=== PATIENT | female | born 1950 | race Caucasian/White ===

== ENCOUNTER → 2023-12-12 | Outpatient (REF) | payer OTHER, SELFPAY | LOC: DHSLP | PROVIDERS: ATTENDING PHYSICIAN Internal Medicine Critical Care Medicine; FAMILY PHYSICIAN Internal Medicine | DX: G47.33 Obstructive sleep apnea (adult) (pediatric) (principal) | CPT/HCPCS: 95811 ==

== ENCOUNTER → 2024-06-12 14:04 | Outpatient (REF) | payer OTHER, SELFPAY | LOC: HWRAD 14:04 | PROVIDERS: ATTENDING PHYSICIAN Internal Medicine | DX: M81.0 Age-related osteoporosis without current pathological fracture (principal); Z12.31 Encounter for screening mammogram for malignant neoplasm of breast | CPT/HCPCS: 77063; 77067; 77080 ==

== ENCOUNTER → 2024-11-13 10:26 | Outpatient (REF) | payer OTHER, SELFPAY | LOC: HWRAD 10:26 | PROVIDERS: ATTENDING PHYSICIAN Internal Medicine | DX: R10.31 Right lower quadrant pain (principal); E04.1 Nontoxic single thyroid nodule | CPT/HCPCS: 76536; 76830; 76856 ==

== ENCOUNTER → 2024-12-10 15:46 | Outpatient (REF) | payer OTHER, SELFPAY | LOC: RAD 15:46 | PROVIDERS: ATTENDING PHYSICIAN Hospitalist; FAMILY PHYSICIAN Internal Medicine | DX: R10.31 Right lower quadrant pain (principal) | CPT/HCPCS: 74177; Q9967 ==

== ENCOUNTER → 2025-01-18 11:47 | Outpatient (REF) | payer OTHER, SELFPAY | LOC: RAD 11:47 | PROVIDERS: ATTENDING PHYSICIAN Internal Medicine Gastroenterology; FAMILY PHYSICIAN Internal Medicine | DX: R19.4 Change in bowel habit (principal) | CPT/HCPCS: 74018 ==

== ENCOUNTER 2025-02-15 08:24 | Inpatient (IN) | payer OTHER, SELFPAY ==
[2025-02-13 14:40] VITALS: BP 122/103
[2025-02-13 14:41] VITALS: BP 104/72
[2025-02-13 14:43] LABS: Glucose - Point of Care 108 mg/dl (70-99)
[2025-02-13 15:13] LABS: % Basophils 0.7 % (0-2); % Eosinophils 0.8 % (0-6); % Immature Granulocytes 0.3 % (0-0.5); % Lymphocytes 26.2 % (20.5-51.1); % Monocytes 8.9 % (1.7-9.3); % Neutrophils 63.1 % (42.2-75.2); Absolute Basophils 0.1 10^3/uL (0-0.2); Absolute Eosinophils 0.1 10^3/uL (0-0.7); Absolute Monocytes 0.7 10^3/uL (0.1-0.6); Absolute Neutrophils 4.7 10^3/uL (1.4-6.5); Hematocrit 37.9 % (37.0-47.0); Hemoglobin 12.7 g/dL (12.0-16.0); Mean Corp Hgb Conc. 33.5 g/dL (33.0-37.0); Mean Corpuscular Hgb 29.5 pg (27.0-31.0); Mean Corpuscular Volume 88.1 fL (81.0-99.0); Mean Platelet Volume 10.4 fL (7.4-10.4); Nucleated Red Blood Cells % 0 %; Platelet Count 221 10^3/uL (130-400); Red Cell Dist. Width 13.3 % (11.5-14.5); White Blood Cell Count 7.4 10^3/uL (4.8-10.8)
[2025-02-13 15:21] LABS: Urine Albumin 4+ (Neg - Trace); Urine Bilirubin Negative (Negative); Urine Character Cloudy (Clear); Urine Color Yellow; Urine Glucose Negative (Negative); Urine Ketone Negative (Negative); Urine Leukocyte 2+ (Negative); Urine Nitrite Negative (Negative); Urine Occult Blood 2+ (Negative); Urine Specific Gravity 1.025 (<1.030); Urine Urobilinogen Negative (Neg - 1+)
[2025-02-13 15:29] LABS: ALT (SGPT) 20 U/L (0-35); AST (SGOT) 21 U/L (14-36); Alkaline Phosphatase 87 U/L (38-126); Blood Urea Nitrogen 26 mg/dl (7-17); Calcium 9.9 mg/dl (8.4-10.2); Carbon Dioxide 19 mmol/L (22-30); Chloride 109 mmol/L (98-107); Glucose 116 mg/dl (70-99); Potassium 4.8 mmol/L (3.5-5.1); Sodium 139 mmol/L (135-145); Total Bilirubin 0.7 mg/dl (0.2-1.3); Total Protein 6.7 g/dl (6.3-8.2); eGFR 53.39
[2025-02-13 15:31] LABS: Urine Bacteria Many (Negative); Urine Squamous Cell >30 /LPF (Few); Urine White Cell 30-40 /HPF (0-5)
[2025-02-13 15:33] LABS: COVID-19 Antigen Negative (Negative)
--- NOTE | 2025-02-13 16:45 | ED.GENMED ---
History of Present Illness
General
Chief Complaint: Blood Sugar Problem
Source: patient
Exam Limitations: none
Time Seen by Provider: 02/13/25 16:34
Nursing documentation reviewed up to this point in time: agreed with
History of Present Illness
History of Present Illness:
74 yo female w h/o TIA, Migraines, HTN, HLD, GERD, Gastric bypass, NIDDM, chronic UTI, Hypothyroid, presents for dysuria, vaginal pain and consistently low blood sugars in 50'-60's past 3 days.
Has been fatigued past week, poor appetite.
Followed by [facility], referred to Vulvovaginal GAS ENGINE REPAIRER at [place] for vaginal pain. Chronic UTI's, place on Methenamine Kaila one month ago, finished 7 days Nitrofurantoin yesterday with no relief of symptoms.
Started Estradiol and Clobetasol cream to vaginal area 2 weeks ago but it burned too much so stopped.
Denies fever/chills. Was nauseous yesterday with dry heaves, no vomiting.
Past History
Past History
ED Past Medical History: GERD, HTN, Hypercholesterolemia, NIDDM, Hypothyroidism, Psychiatric (depression) and Other (TIA, )
ED Past Surgical History: Cholecystectomy, Orthopedic and Other (Gastric bypass)
Social History
Tobacco: Non-smoker
Alcohol: Occasional
Personal: Single
Living: with family
Employment: Employed (but off for the summer )
Family History
Family History: Other (Reviewed and non-contributory)
Review of Systems
Review of Systems
Allergies reviewed?: Yes
All Other Systems: ROS reviewed and negative except as documented in HPI and ROS
Constitutional: Denies fever or chills
Respiratory: Denies trouble breathing
Cardiac: Denies chest pain
ABD/GI: Reports nausea; Denies abdominal pain, vomiting, diarrhea or constipated
: Reports dysuria, incontinence and other (vaginal pain, chronic); Denies difficulty voiding, bleeding or discharge
Phy Exam
Physical Exam
Physical Exam:
GENERAL: No acute distress. A&Ox3.
CONSTITUTIONAL: Afebrile.
EYES: clear, conjunctivae normal
ENMT: moist mucus membranes, Pharynx nl
RESPIRATORY: Regular respirations, nonlabored, lungs clear.
CARDIOVASCULAR: Regular rate and rhythm, no murmurs, no rubs.
GI: Soft, nontender, normal BS
: external exam only: mild erythema of introitus and urethral opening, no discharge, vaginal atrophy noted.
MUSCULOSKELETAL: Moves with ease. Well perfused.
SKIN: Warm, dry, pink
PSYCH: Normal mood and affect. Well kept, interactive and appropriate
NEUROLOGIC: Awake, alert and oriented. No focal neurological deficits
Course
Orders/Labs/Results
Orders:
Orders
02/13/25 14:59
COVID-19 Antigen Urgent
Source: Nasal Swab
Urinalysis Reflex To Culture Urgent
Date Specimen was Collected: 02/13/25
Time Specimen was Collected: 14:47
Urine Microscopic Reflex Cult Urgent
Urine Culture Urgent
YADY Source: U
Specimen Description:
Date Specimen was Collected: 02/13/25
Time Specimen was Collected: 14:47
02/13/25 15:00
Complete Blood Count/With Diff Urgent
Comprehensive Metabolic Panel Urgent
Influenza A+B Rapid Molecular Urgent
YADY Source: Nasal Swab
Specimen Description:
02/13/25 18:16
Piperacillin/Tazo 3.375 Gram [Zosyn] 3.375 gram in 50 ml IV NOW
02/13/25 19:44
Admit/Transfer Patient As Directed
Co-Sign Provider:
Level of Care: Observation services
Assign to:: Medical/Surgical
Physician / Group: José Luis
Diagnosis: UTI
Reason for Hospitalization: UTI
02/13/25 19:45
PRN Pain Medication Management As Directed
May give lesser potent ordered pain med per pt: Yes
preference::
Protocol:: Medication orders for pain may be administered in a
manner that supports deferring to patient preference
when the pt is:
- Requesting an ordered lesser potent pain medication.
Least to most potent pain medications are defined
as: acetaminophen < NSAID < tramadol < opioids
(morphine, oxycodone, hydromorphone).
- Requesting a lesser dose of the same medication IF
ORDERED.
- Requesting a less intrusive route of administration
if both routes are prescribed by the provider (PO <
IV).
02/13/25 19:46
Code Status As Directed
Resuscitation Status: Full Code
Abnormal Lab Results
02/13/25 02/13/25 02/13/25
14:40 14:59 15:00
Absolute Monos (auto) 0.7 H 10^3/uL
(0.1-0.6)
Chloride 109 H mmol/L
(98-107)
Carbon Dioxide 19 L mmol/L
(22-30)
BUN 26 H mg/dl
(7-17)
Creatinine 1.1 H mg/dL
(0.6-1.0)
Glucose 116 H mg/dl
(70-99)
Ur Occult Blood Reflex 2+ A
(Negative)
Leukocyte Esterase Rfl 2+ A
(Negative)
Urine RBC 3-6 A /HPF
(0-2)
Urine WBC (Reflex) 30-40 A /HPF
(0-5)
Urine Bacteria (Reflex) Many A
(Negative)
Urine Albumin (Reflex) 4+ A
(Neg - Trace)
POC Glucose 108 H mg/dl
(70-99)
02/13/25
19:51
Absolute Monos (auto)
Chloride
Carbon Dioxide
BUN
Creatinine
Glucose
Ur Occult Blood Reflex
Leukocyte Esterase Rfl
Urine RBC
Urine WBC (Reflex)
Urine Bacteria (Reflex)
Urine Albumin (Reflex)
POC Glucose 66 L mg/dl
(70-99)
02/13/25 15:00
02/13/25 15:00
Vital Signs
Initial and Last Documented VS:
Initial Vital Signs
Temp Pulse BP Pulse Ox
98 F 94 122/103 97
02/13/25 14:40 02/13/25 14:40 02/13/25 14:40 02/13/25 14:40
Last Documented Vital Signs
Temp Pulse Resp BP Pulse Ox
97.9 F 91 16 135/74 95
02/13/25 18:21 02/13/25 18:21 02/13/25 20:00 02/13/25 18:21 02/13/25 18:21
MDM/Problems Addressed
Differential Diagnosis Includes:
UTI, Vaginitis, hypoglycemia
MDM/Problems Addressed:
74 yo female w h/o TIA, Migraines, HTN, HLD, GERD, Gastric bypass, NIDDM, chronic UTI, Hypothyroid, presents for dysuria, vaginal pain and consistently low blood sugars in 50'-60's past 3 days.
Has been fatigued past week, poor appetite.
Followed by [facility], referred to Vulvovaginal GAS ENGINE REPAIRER at [place] for vaginal pain. Chronic UTI's, place on Methenamine Kaila one month ago, finished 7 days Nitrofurantoin yesterday with no relief of symptoms.
Started Estradiol and Clobetasol cream to vaginal area 2 weeks ago but it burned too much so stopped.
Denies fever/chills. Was nauseous yesterday with dry heaves, no vomiting.
CBC normal
CMP: BUN/Creat 26/1.1, otherwise unremarkable. IVFs ordered for mild dehydration
U/A: with 30-40 WBC's, many bacteria,2+ blood, 4+albumin, pt with chronic UTIs and dysuria, similar to her previous U/As
7:00 p.m.
elderly female being admitted for UTI, hypoglycemia, vaginal pain
Organism has been sensitive to Zosyn in the past so will start that pending culture results.
Hospitalist notified of admission
*Critical Care Note
Total Time (30-74mins, 75-104mins- exclusive of procedures): Not Applicable
ED Attending Note
-
Portions of this chart may have been created with voice recognition software.� Occasional wrong word or��sound alike� substitutions may have occurred due to the inherent limitations of voice recognition software.
Discharge Plan
Departure
Patient Disposition: Admit
Date of Disposition: 02/13/25
Time of Disposition: 18:19
Admit to: Med/Surg
Presentation/result/management discussed w/ accepting MD/DO: Hospitalist
Condition: Fair
Discharge Problem:
UTI (urinary tract infection) due to Enterococcus, Hypoglycemia associated with type 2 diabetes mellitus
Interventions
Interventions:
*Risk Screen - Suicide Last Done: 02/13/25 14:41
*General Assessment Last Done: 02/13/25 14:41
*Neglect/Abuse Screening Last Done: 02/13/25 14:41
*ED- Fall Risk Assessment Last Done: 02/13/25 18:54
*ED COVID-19 Vaccine History Last Done: 02/13/25 18:54
ED- Neurological Assessment Last Done: 02/13/25 18:21
[2025-02-13 18:21] VITALS: BP 135/74
[2025-02-13] MEDS: ZOSYN 50 IV (18:50)
[2025-02-13 18:55] VITALS: BMI 33.5
--- NOTE | 2025-02-13 19:11 | HPS.HSE ---
Family Physician
-
Family Physician: Arelis Crews
Chief Complaint
-
Low blood sugar readings and urinary symptoms.
History of Present Illness
Is a 74-year-old female with past medical history significant for exp-bckcyrg-wfcscohke diabetes, hypertension, hyperlipidemia, GERD, recurrent UTIs who presents to the emergency department with complaints of blood sugar reading low on a continuous
monitor as well as urinary symptoms.
Patient reports that for the last 2 weeks she has had blood sugars that she has been in the low 70s and as low as 50s as measured by her Dexcom monitor. She reported that she had seen spikes to just below 200 but is not clear whether this was
postprandial. She is not having symptoms that can be associated with hypoglycemia however. She has no new changes on the medications as she continues to be on metformin and Ozempic. She states she has been taking Ozempic for at least 2 months.
She does not take any other glucose lowering agents. Patient denies any significant weight loss. She denies any diarrhea. She denies any changes in bowel habits. She denies any significant changes in food intake. She does report decreased
appetite. Family reports that patient has been more sleepy over the last few days with increased urinary symptoms.
Patient has history of recurrent urinary tract infections and vaginitis and has been followed by urology as well vulvovaginal expert. She was recently started on ointment as well as maintenance methenamine as needed nitrofurantoin. She just
finished for 5-day course of nitrofurantoin without any improvement in her dysuria. She reports of burning sensation anytime she pees. It is not clear when that is mostly from the vaginitis or from a new urinary tract infection. She had a
positive UA at the clinic about 1 week ago and due to the dysuria was started on the nitrofurantoin few days later.
She has not had any fevers or chills. She is scheduled for colonoscopy for right-sided abdominal discomfort but this was canceled 2 days ago and has been rescheduled for April.
And emergency department she was afebrile, blood pressure 135/74 with a pulse of 91 and she was satting 95% on room air. CBC was unremarkable. Electrolytes were mostly unremarkable with a bicarb of 19 BUN of 26 and a creatinine of 1.1. Glucose
was 116.
UA showed positive leukocyte Estrace, negative nitrites, bacteria WBCs and loss of squamous cells.
Medical History
Past Medical History
Past Medical History: Reports GERD, HTN, Hypercholesterolemia, Hypothyroidism and NIDDM
Additional Past Medical History:
Recurrent urinary tract infections has been seen urologic oncologist
Past Surgical History: Reports Orthopedic
Social History
Unable to obtain full social history at this time due to: Dementia
Tobacco: Non-smoker
Alcohol: None
Drug: None
Personal: Single
Living: With Family
Employment: Employed
Family History
Family History: Not pertinent
Allergies / Home Medications
Allergies reflects when Allergies were last updated in [employer].
Home Medications with original date entered in [employer]
Allergy/Medication List:
Allergies
Allergy/AdvReac Type Severity Reaction Status Date / Time
sulfamethoxazole Allergy 'throat Verified 06/28/23 14:25
closes,
rash'
Home Medications
aspirin 81 mg tablet,delayed release 81 mg PO DAILY Blood clot prevention/tx 05/08/22
atorvastatin 20 mg tablet 20 mg PO QPM High cholesterol 05/08/22
cholecalciferol (vitamin D3) 25 mcg (1,000 unit) tablet (Vitamin D3) 25 mcg PO DAILY Supplement 05/08/22
levothyroxine 100 mcg tablet 100 mcg PO DAILY Thyroid 05/08/22
metoprolol succinate 50 mg tablet,extended release 24 hr 50 mg PO DAILY Heart disease/condition 05/08/22
omeprazole 40 mg capsule,delayed release 40 mg PO DAILYPRN PRN gerd 05/08/22
gabapentin 300 mg capsule 300 mg PO HS Neurological Condition 06/27/22
furosemide 20 mg tablet (Lasix) 20 mg PO DAILY 06/28/23
vibegron 75 mg tablet (Gemtesa) 75 mg PO DAILY 06/28/23
ferrous sulfate 325 mg (65 mg iron) tablet 325 mg PO Q48H 30 days #15 tabs 07/02/23
insulin lispro 100 unit/mL subcutaneous half-unit pen (Humalog Kiran KwikPen (U-100)) See Rx Instructions .Route .COMPLEX PRN blood sugar 02/13/25
metformin 1,000 mg tablet 1,000 mg PO BID 02/13/25
therapeutic multivitamin 1 tab PO DAILY 02/13/25
Review of Systems
-
History Source: Patient
Constitutional: Reports Sleep Disturbance
EENT: Reports No Symptoms
Respiratory: Reports No Symptoms
Cardiac: Reports No Symptoms
Abdomen/GI: Reports Abdominal Pain
: Reports Dysuria
Musculoskeletal: Reports No Symptoms
Skin: Reports No Symptoms
Neurological: Reports No Symptoms
Endocrine: Reports Other (hypoglycemia)
Hematologic/Lymphatic: Reports No Symptoms
Psych: Reports No Symptoms
Physical Exam
Vital Signs
Vital Signs
Temp Pulse Resp BP Pulse Ox
97.9 F 91 18 135/74 95
02/13/25 18:21 02/13/25 18:21 02/13/25 18:21 02/13/25 18:21 02/13/25 18:21
Physical Exam
General: Well Developed, Well Nourished and Comfortable
HEENT: NormoCephalic, Anicteric, Moist mucous membranes and Atraumatic
Respiratory: Clear
Cardiac: S1/S2 and Regular Rhythm
Breast: Deferred by me
GI: Soft, Non Tender, Non Distended and Normal Bowel Sounds
Rectal: Deferred by Provider
Genito-urinary: Deferred by me
Musculoskeletal: No Clubbing, No Cyanosis and No Edema
Skin: Warm
Neuro: AO x 3 and Nonfocal/grossly intact
Hematologic/Lymphatic: No Lymphadenopathy
Psych: Calm
Laboratory Results
-
02/13/25 15:00
02/13/25 15:00
Laboratory Results
Total Bilirubin 0.7 mg/dl (0.2-1.3) 02/13/25 15:00
AST 21 U/L (14-36) 02/13/25 15:00
ALT 20 U/L (0-35) 02/13/25 15:00
Alkaline Phosphatase 87 U/L (38-126) 02/13/25 15:00
Data Reviewed
-
Lab Data: Labs Reviewed by me
Old Records: Reviewed
Impression/Plan
-
IMPRESSION:
74-year-old with diabetes, hypertension, hyperlipidemia, recurrent urinary tract infections coming in with urinary symptoms (dysuria) as well as low glucose readings on her continous monitor. U/A is positive and she has been more sleepy.
PLAN:
UTI - Recurrent UTI with h/o resistant Ecoli and Enterobacter. Appears symptomatic with dysuria but confounded by severe vaginitis. Contaminated u/a sample.
- admit to med/surg
- urine cultures sent
- will continue zosyn for now
- given resistance profile, will get ID consultation as patient may be colonized
- pyridium prn
DM II - last A1c 6.4 in December. Reads as low as 56 on dexcom but no symptoms. Blood glucose 116 on blood test and 102 on fingerstick here today. No dietary changes, no med changes. On ozempic x 2 months and metformin which do not lead to
hypoglycemia. Adrenal insufficiency vs medication related and less likely exogenous or hyperinsulin secretion
- correlate readings here with her dexcom -> check dexcom and fingersticks achs and correlate findings, also check dexcom and blood draws to correlate
- hold metformin for now
- low dose sliding scale
- continue levothyroxine
- check tsh and am cortisol
- if readings correlate and patient has hypoglycemic episodes with unawareness consider supervised fasting for exogenous and endogenous insulin secretion
HTN
- continue metoprolol
- continue lasix
DVT PPX - lovenox sq
Code Status - Full code
[2025-02-13 19:52] LABS: Glucose - Point of Care 66 mg/dl (70-99)
[2025-02-13 20:22] LABS: Glucose - Point of Care 84 mg/dl (70-99)
[2025-02-13 21:11] VITALS: BP 144/78; BMI 33.4
[2025-02-13 21:40] LABS: Glucose - Point of Care 76 mg/dl (70-99)
--- NOTE | 2025-02-13 22:05 | PTCARENOTE ---
Pt received from ED via stretcher. Ambulated to bed w/rolling walker and assist x1. Oriented to surroundings and plan of care discussed. Admission and assessment completed. Pt denies pain. Skin intact. Instructed to ring for assist when
getting OOB, verbalizes understanding. Pt's own soft brace to R ankle, removed per pt request. Offers no complaints at present. Call rupinder w/in reach.
[2025-02-13] MEDS: NEURONTIN 300 MG PO (22:20)
[2025-02-13] MEDS: GLUCOPHAGE 1000 MG PO (22:20)
[2025-02-13 23:35] VITALS: BP 169/89
[2025-02-14] MEDS: ZOSYN 50 IV ×5 (00:16→23:32)
--- NOTE | 2025-02-14 03:10 | GLUCOSE ---
Addendum entered by Jenn Stock RN 02/14/25 05:10:
Pt's device continues to register in the 50s. Provider notified. Instructed to repeat accucheck now. Fingerstick = 69. Electronic orders for IVF received.
Addendum entered by Jenn Stock RN 02/14/25 03:50:
Repeat fingerstick at 0326 = 85. Provider notified and values from pt's freestyle device communicated. Instructed to draw am labs. At the time am labs were drawn, pts device indicated glucose was 62
Original Note:
SITUATION:
0300 blood sugar 69 via accudata, pt's own freestyle device reading 54
BACKGROUND:
pt has been hypoglycemic prior to admission. per protocol 0300 blood sugar warranted. orders to check pt's own monitor when accuchecks are completed to correlate values.
ASSESSMENT:
pt drowsy but arousable to verbal stimuli, conversant, reports feeling asymptomatic
RECOMMENDATION: 4 oz orange provided per protocol, recheck fingerstick per protocol
[2025-02-14 03:15] LABS: Glucose - Point of Care 69 mg/dl (70-99)
[2025-02-14 03:37] LABS: Glucose - Point of Care 85 mg/dl (70-99)
[2025-02-14 04:35] LABS: Blood Urea Nitrogen 31 mg/dl (7-17); Calcium 9.8 mg/dl (8.4-10.2); Carbon Dioxide 15 mmol/L (22-30); Chloride 111 mmol/L (98-107); Estimated Creatinine Clearance 31 ml/min; Glucose 80 mg/dl (70-99); Magnesium 1.5 mg/dl (1.6-2.3); Sodium 139 mmol/L (135-145)
[2025-02-14 05:03] LABS: Glucose - Point of Care 68 mg/dl (70-99)
[2025-02-14] MEDS: MAGNESIUM SULFATE 100 IV (05:04)
[2025-02-14] MEDS: D5/0.45%NACL 1000 IV (05:04)
[2025-02-14 05:05] LABS: Alcohol None Detected
[2025-02-14 05:18] LABS: TSH 0.25 uIU/ml (0.47-4.68)
[2025-02-14 05:31] LABS: Cortisol, Random 9.2 ug/dl
[2025-02-14] MEDS: SYNTHROID 100 MCG PO (06:08)
[2025-02-14 07:04] LABS: Glucose - Point of Care 72 mg/dl (70-99)
--- NOTE | 2025-02-14 07:45 | PTCARENOTE ---
06:52 Accucheck resulting 72. Personal Dexcom reading 54.
[2025-02-14 07:47] VITALS: BP 113/61
[2025-02-14 09:02] LABS: Glucose - Point of Care 78 mg/dl (70-99)
[2025-02-14] MEDS: FEOSOL 325 MG PO (09:09)
[2025-02-14] MEDS: ASPIR LOW (ENTERIC COATED) 81 MG PO (09:09)
[2025-02-14] MEDS: LASIX 20 MG PO (09:09)
[2025-02-14] MEDS: TOPROL XL 50 MG PO (09:10)
--- NOTE | 2025-02-14 10:22 | CM ---
Met with patient admitted from home. she lives alone in 3rd floor apt with elevator access. She has rolling walker, rollator, CPAP, bar that is in U shape near shower and toilet . she has shower seat also.She has been to [facility] in past.
PCP DR. Crews
Rx : [facility]
PLAN: home no needs.
--- NOTE | 2025-02-14 12:03 | W.PN.HOSP.TC ---
Today's Communication/Plan
-
Hold Lasix and metformin
Change IV fluids to fluids with bicarb
Repeat labs in the morning
Continue antibiotics
Await infectious disease consultation
Discontinue Gemtesa
Assessment / Plan
Assessment / Plan
This is a pleasant 74-year-old female with history of diabetes presented with complaints of low sugar. For the past 2 weeks she has had blood sugars in the 50s to 70s on her Dexcom. She uses Humalog as needed and has not really required it. No
other symptoms other than feeling tired currently she is on Humalog as needed, which she has not required, metformin and Ozempic. Patient has a history of recurrent UTIs and has been followed by urology as well as a vulvovaginal specialist. She is
on methenamine and as needed nitrofurantoin. No fever or chills.
On examination patient is awake and alert
Cardiovascular system S1-S2 appreciated, short systolic murmur at apex
Chest clear to auscultation
Abdomen I could not elicit any tenderness
No pedal edema
# Hypoglycemia
Of diabetes
Patient reports last hemoglobin A1c was 6.4 in December
Normal cortisol level
TSH low. I would repeated with reflex to T4 in the morning
Hold off on further metformin
Watch sugars
Currently on IV fluids with dextrose-stop it when blood sugars are stable
# Recurrent UTIs
History of colonization with multidrug-resistant organism-Enterobacter, Citrobacter, E. coli
History of chronic interstitial cystitis
Agree with infectious disease consultation
Wait for cultures
Currently on Zosyn
I would hold off on Gemtesa given recurrent UTIS.
Pyridium as needed for symptoms
May benefit from estrogen vaginal creams
# Acute kidney injury-with metabolic acidosis -hold metformin and Lasix
Check bladder scan.
Fluids with bicarb
# Hypomagnesemia-replaced. Recheck in am.
# Hypothyroidism-continue levothyroxine 100 mcg daily
# Hypertension-continue metoprolol
# Hyperlipidemia-continue statin
# History of TIA-continue aspirin and statin
# Obesity with history of gastric sleeve surgery in the past in 2018- Currently on Ozempic.
# Sleep apnea-continue CPAP
# Overactive bladder-on Gemtesa as outpatient
# GERD-PPI
# Migraines
# DVT prophylaxis-Lovenox
# Full code
D/W Nephew
D/W RN
reviewed ols charts
Time spent today- over 50 min
Anticipated Discharge: > 48 hours
Subjective/Interval History
-
Date of Service: February 14, 2025
Objective Data
-
Labs:
Laboratory Results
02/14/25
03:45
Sodium 139
Potassium 5.0
Chloride 111 H
Carbon Dioxide 15 L
BUN 31 H
Creatinine 1.5 H
Glucose 80
Calcium 9.8
Vital Signs:
Vital Signs
Temp Pulse Resp BP Pulse Ox
97.9 F 76 20 113/61 94
02/14/25 07:47 02/14/25 07:47 02/14/25 07:47 02/14/25 07:47 02/14/25 07:47
[2025-02-14 12:47] LABS: Glucose - Point of Care 127 mg/dl (70-99)
--- NOTE | 2025-02-14 13:45 | CON.ID ---
Consultation
-
Date/Time Consultation Requested: 02/14/25 5:45
Date/Time Consultation Performed: 02/14/25 13:46
Requesting Provider: Dr Ordonez
Performing Provider: Dr Phillip
Reason for Consultation: hx of esbl uti, ?colonization, on zosyn
Chief Complaint / Past History
Chief Complaint
dysuria
History of Present Illness
Ms Ghosh is a 74 year old female with history of lichen sclerosis x5 years, recurrent UTIs and colonization with ESBL E coli who presented here yesterday for hypoglycemia on ozempic. She was recently started on estrace, clobetasol, methanamine
and an empiric 5 day course of nitrofurantoin without improvement in dysuria. No fevers or chills. She reports that with starting the creams she actually had worsening of her chronic vaginitis.
In the ER she was afebrile, bp stable, wbc 7.4, hg b12.7, plt 221, no L shift, Na 139, cr baseline 0.8 on arrival 1.1 and now 1.5, lfts are wnl, UA with 30-40 wbc/hpf and many bacteria, urine culture pending. She is currently on zosyn.
Past History
Additional Past Medical History:
GERD, HTN, Hypercholesterolemia, Hypothyroidism and NIDDM
Additional Past Surgical History:
none
Allergy History:
sulfamethoxazole Allergy (Verified 06/28/23 14:25)
'throat closes, rash'
Medications Reviewed: Yes
Social History
Tobacco: Non-Smoker
Alcohol: None
Drug: None
Family History
Family History: Not Pertinent
Review of Systems
Review of Systems
General: Negative Fever or Chills
All systems: All other systems were reviewed and were negative
Vital Signs
Temp Pulse Resp BP Pulse Ox
97.9 F 76 20 113/61 94
02/14/25 07:47 02/14/25 07:47 02/14/25 07:47 02/14/25 07:47 02/14/25 07:47
Physical Exam
Physical Exam
Constitutional: No Acute Distress and Chronically Ill
Cardiovascular: Regular Rate and S1/S2; Negative Murmur or Rub
Pulmonary: Clear and Symmetric; Negative Wheezes, Rales or Rhonchi
Gastrointestinal: Soft, Non Tender, Non Distended and Normal Bowel Sounds
Genito-Urinary: Other (vaginal tissue is pale, white, atrophic appearing,)
Skin: Warm and Dry; Negative Rash or Jaundice
Lab / Diagnostic Study Results
02/13/25 15:00
02/14/25 03:45
Abs Immat Gran (auto) 0.0 10^3/uL (0-0.05) 02/13/25 15:00
Absolute Neuts (auto) 4.7 10^3/uL (1.4-6.5) 02/13/25 15:00
Absolute Lymphs (auto) 2.0 10^3/uL (1.2-3.4) 02/13/25 15:00
Absolute Monos (auto) 0.7 10^3/uL (0.1-0.6) H 02/13/25 15:00
Absolute Basos (auto) 0.1 10^3/uL (0-0.2) 02/13/25 15:00
Immature Gran % 0.3 % (0-0.5) 02/13/25 15:00
Neutrophils % 63.1 % (42.2-75.2) 02/13/25 15:00
Lymphocytes % 26.2 % (20.5-51.1) 02/13/25 15:00
Monocytes % 8.9 % (1.7-9.3) 02/13/25 15:00
Eosinophils % 0.8 % (0-6) 02/13/25 15:00
Basophils % 0.7 % (0-2) 02/13/25 15:00
Ur Squamous Epith Cells >30 /LPF (Few) 02/13/25 14:59
Microbiology Results
Micro:
02/13/25 15:00 Influenza Types A & B (BISHOP) - Final
Nasal Swab Negative for Influenza A & B, NAAT
Negative results must be combined with clinical observations
and patient history.
Nucleic Acid Amplification test (NAAT)performed on the
[employer] platform.
02/13/25 14:59 Urine Culture - Pending
Urine
Assessment / Plan
Urinary Tract Infection
Lichen Sclerosis
H/o colonization with ESBL forming organism
Allergy to bactrim
- urine culture in progress, UA consistent with UTI
- also with vaginitis - no yeast seen on gram stain of urine, she has had recent antibiotic exposure to nitrofurantoin
- vaginal yeast culture obtained given worsening of symptoms on topical steroids
- continue zosyn
- for tonight hold the clobetasol, estrace and hiprex; patient can use home vaseline for symptom management
- follow clinically
[2025-02-14] MEDS: SODIUM BICARBONATE 1150 MEQ IV (15:24)
[2025-02-14 15:30] VITALS: BP 113/61
[2025-02-14 17:31] LABS: Glucose - Point of Care 97 mg/dl (70-99)
[2025-02-14] MEDS: LIPITOR 20 MG PO (17:32)
[2025-02-14] MEDS: LOVENOX 40 MG SC (17:32)
[2025-02-14 21:31] LABS: Glucose - Point of Care 157 mg/dl (70-99)
[2025-02-14] MEDS: NEURONTIN 300 MG PO (21:58)
--- NOTE | 2025-02-14 22:12 | RESPNOTE ---
Rectified own CPAP order with patient at this time. Pt stated 'I do not have my unit and there is no one to bring it in. I would like to try the hospitals'. House provider was contacted and order was changed. Pt worried about 'mask fitting and not
knowing settings'. It was communicated to pt that we would titrate CPAP settings to pt comfort. Pt declined to be placed on CPAP at this time and was instructed to notify respiratory if she changes her mind.
[2025-02-14 23:08] VITALS: BP 126/68
[2025-02-15 03:06] LABS: Glucose - Point of Care 84 mg/dl (70-99)
[2025-02-15] MEDS: TYLENOL 650 MG PO (06:08)
[2025-02-15] MEDS: SYNTHROID 100 MCG PO (06:09)
[2025-02-15] MEDS: ZOSYN 50 IV ×2 (06:09→12:00)
[2025-02-15 07:35] VITALS: BP 137/77
[2025-02-15] MEDS: SODIUM BICARBONATE 1150 MEQ IV (08:39)
--- NOTE | 2025-02-15 08:39 | W.PN.ID1 ---
Date of Service
Date of Service: February 15, 2025
Today's Communication
- stop zosyn
- give fluconazole 150 mg once today and second dose in 3 days
- for tonight hold the clobetasol, estrace and hiprex; patient can use home vaseline for symptom management
- at home can restart medications one at a time starting saturday, first estradiol for several days, then clobetasol. Hiprex could be held until she see her urogynecologist
- stable for dc from ID perspective, follow up with her urogynecologist
Assessment / Plan
Urinary Tract Infection
Lichen Sclerosis
H/o colonization with ESBL forming organism
BARBARA - improving
Allergy to bactrim
- 25 K lactobacillus from the urine - contaminant
- also with vaginitis - no yeast seen on gram stain of urine, she has had recent antibiotic exposure to nitrofurantoin
- vaginal yeast culture obtained given worsening of symptoms on topical steroids
- stop zosyn
- give fluconazole 150 mg once today and second dose in 3 days
- for tonight hold the clobetasol, estrace and hiprex; patient can use home vaseline for symptom management
- at home can restart medications one at a time starting saturday, first clobetasol for several days, then estrace. Hiprex could be held until she see her urogynecologist
- stable for dc from ID perspective
Chief Complaint
-: UTI and Other (lichen sclerosis)
Subjective / Review of Systems
remains afebrile
bp stable
dysuria resolved
Vital Signs / Physical Exam
Vital Signs
Vital Signs
Temp Pulse Resp BP Pulse Ox
97.7 F 69 16 137/77 93
02/15/25 07:35 02/15/25 07:35 02/15/25 07:35 02/15/25 07:35 02/15/25 07:35
Physical Exam
Constitutional: No Acute Distress and Chronically Ill
Cardiovascular: Regular Rate and S1/S2; Negative Murmur or Rub
Pulmonary: Clear and Symmetric; Negative Wheezes or Rales
Gastrointestinal: Soft, Non Tender, Non Distended and Normal Bowel Sounds
Skin: Warm and Dry; Negative Rash or Jaundice
Objective Data
Lab Data
Estimated Creat Clear 31 ml/min 02/14/25 03:45
Total Bilirubin 0.7 mg/dl (0.2-1.3) 02/13/25 15:00
AST 21 U/L (14-36) 02/13/25 15:00
ALT 20 U/L (0-35) 02/13/25 15:00
Alkaline Phosphatase 87 U/L (38-126) 02/13/25 15:00
Most recent labs reviewed.
Micro Results:
02/14/25 15:11 Yeast Culture - Pending
Vagina
02/13/25 15:00 Influenza Types A & B (BISHOP) - Final
Nasal Swab Negative for Influenza A & B, NAAT
Negative results must be combined with clinical observations
and patient history.
Nucleic Acid Amplification test (NAAT)performed on the
[employer] platform.
02/13/25 14:59 Urine Culture - Pending
Urine
Care Review
Plan reviewed with: Physician (Dr Antoinette fermin)
[2025-02-15] MEDS: ASPIR LOW (ENTERIC COATED) 81 MG PO (08:41)
[2025-02-15] MEDS: TOPROL XL 50 MG PO (08:41)
[2025-02-15 08:44] LABS: Hematocrit 32.6 % (37.0-47.0); Hemoglobin 11.2 g/dL (12.0-16.0); Mean Corp Hgb Conc. 34.4 g/dL (33.0-37.0); Mean Corpuscular Hgb 29.7 pg (27.0-31.0); Mean Corpuscular Volume 86.5 fL (81.0-99.0); Mean Platelet Volume 10.3 fL (7.4-10.4); Platelet Count 164 10^3/uL (130-400); Red Blood Cell Count 3.77 10^6/uL (4.20-5.40); Red Cell Dist. Width 13.6 % (11.5-14.5); White Blood Cell Count 4.9 10^3/uL (4.8-10.8)
[2025-02-15 08:46] LABS: Glucose - Point of Care 111 mg/dl (70-99)
[2025-02-15 09:07] LABS: Blood Urea Nitrogen 31 mg/dl (7-17); Calcium 9.1 mg/dl (8.4-10.2); Carbon Dioxide 27 mmol/L (22-30); Chloride 103 mmol/L (98-107); Estimated Creatinine Clearance 43 ml/min; Glucose 120 mg/dl (70-99); Magnesium 1.8 mg/dl (1.6-2.3); Sodium 138 mmol/L (135-145); eGFR 53.39
[2025-02-15 09:34] LABS: Potassium 3.7 mmol/L (3.5-5.1)
[2025-02-15 09:36] LABS: TSH Reflex To Free T4 0.16 uIU/ml (0.47-4.68)
[2025-02-15 10:06] LABS: Free T4 2.11 ng/dl (0.78-2.19)
[2025-02-15] MEDS: DIFLUCAN 150 MG PO (11:32)
--- NOTE | 2025-02-15 12:21 | CM ---
Patient seen bedside.
Patient aware of CM availability should needs arise.
Spouse will transport.
Plan: home with possible vn needs.
--- NOTE | 2025-02-15 12:23 | CM ---
Patient seen bedside.
Patient aware of CM availability should needs arise.
Plan: home when stable.
[2025-02-15 12:39] LABS: Hepatitis C Antibody Negative (Negative)
--- NOTE | 2025-02-15 12:42 | W.PN.HOSP.TC ---
Today's Communication/Plan
-
see A/P
Assessment / Plan
Assessment / Plan
HPI: 74-year-old female with history of diabetes presented with complaints of low sugar. For the past 2 weeks she has had blood sugars in the 50s to 70s on her Dexcom. She uses Humalog as needed and has not really required it. No other symptoms
other than feeling tired. She is on Humalog as needed, which she has not required, metformin and Ozempic. Patient has a history of recurrent UTIs and has been followed by urology as well as a vulvovaginal specialist. She is on methenamine and as
needed nitrofurantoin. No fever or chills.
A/P:
# Hypoglycemia in setting of IDDM
Patient reports last hemoglobin A1c was 6.4 in December
Cortisol level at 9.2 which is in the intermediate zone, would check stim test to r/o adrenal insufficiency
TSH low at 0.16, reflex FT4 at 2.11. Recc to repeat TSH reflex FT4 in 4 weeks with PCP
Monitor BG off further D5W
# Recurrent UTIs
# History of colonization with multidrug-resistant organisms Enterobacter, Citrobacter, E. coli
# History of chronic interstitial cystitis
urine culture this admission grew yeast
Stop further empiric Zosyn
Treat with fluconazole 150 mg once today 02/15 and second dose in 3 days
Agree with stopping Gemtesa given recurrent UTIs.
Pyridium as needed for symptoms
# Acute kidney injury with metabolic acidosis, resolved
hold metformin and Lasix
bladder scan.
DC further IVF with bicarb
# Hypomagnesemia
replaced
# Hypothyroidism
continue levothyroxine 100 mcg daily
TSH low at 0.16, reflex FT4 at 2.11. Recc to repeat TSH reflex FT4 in 4 weeks with PCP and possibly adjust Synthroid at that time
# Hypertension
continue metoprolol
# Hyperlipidemia
continue statin
# History of TIA
continue aspirin and statin
# Obesity with history of gastric sleeve surgery in the past in 2018
Currently on Ozempic.
# Sleep apnea
continue CPAP
# Overactive bladder
Stopped Gemtesa this admission due to recurrent UTI
# GERD-PPI
# Migraines
DVT prophylaxis-Lovenox
Full code
Dispo: PT OT eval
D/W RN
updated niece on the phone
total time 51 min
Anticipated Discharge: Within 24 hours
Subjective/Interval History
-
Date of Service: February 15, 2025
Objective Data
-
Labs:
Laboratory Results
02/15/25
08:13
WBC 4.9
Hgb 11.2 L
Hct 32.6 L
Plt Count 164 D
Sodium 138
Potassium 3.7 D
Chloride 103
Carbon Dioxide 27
BUN 31 H
Creatinine 1.1 H
Glucose 120 H
Calcium 9.1
Vital Signs:
Vital Signs
Temp Pulse Resp BP Pulse Ox
36.5 C 69 16 137/77 93
02/15/25 07:35 02/15/25 07:35 02/15/25 07:35 02/15/25 07:35 02/15/25 07:35
I&O
02/14/25 02/15/25 02/16/25
06:59 06:59 06:59
Intake Total 1010 / 1010
Balance 1010 / 1010
Review of Systems
-
History Source: Patient
All other systems: Reviewed and negative
Genitourinary: Denies Dysuria (resolved )
Physical Exam
-
General: Well Developed, Well Nourished, No Apparent Distress, Comfortable, Conversant and Obese
HEENT: Normocephalic and Atraumatic
Respiratory: Clear to Auscultation and Non Labored Respirations; Negative Accessory Resp Muscle Use
Cardiac: Regular Rhythm and S1/S2
GI: Soft and Nontender
Musculoskeletal: No Clubbing
Skin: Warm
Neuro: Awake and Alert
Psych: Calm and Intact Judgement/Insight
Data Reviewed
-
Labs: Labs Reviewed by me
[2025-02-15 12:58] LABS: Glucose - Point of Care 118 mg/dl (70-99)
[2025-02-15] MEDS: NSS (PRESERVATIVE FREE) 1 ML IV (15:19)
[2025-02-15] MEDS: CORTROSYN 0.25 MG IV (15:19)
[2025-02-15 15:22] LABS: ACTH Stim Cortisol 0 Min 12.2 ug/dl
[2025-02-15 15:30] VITALS: BP 109/73
[2025-02-15 16:55] LABS: ACTH Stim Cortisol 30 Min 33.8 ug/dl
[2025-02-15 17:17] LABS: Glucose - Point of Care 79 mg/dl (70-99)
[2025-02-15] MEDS: LIPITOR 20 MG PO (17:27)
[2025-02-15] MEDS: LOVENOX 40 MG SC (17:27)
[2025-02-15 17:37] LABS: ACTH Stim Cortisol 60 Min 47.1 ug/dl
[2025-02-15] MEDS: PROTONIX 40 MG PO (20:05)
[2025-02-15 22:04] LABS: Glucose - Point of Care 201 mg/dl (70-99)
[2025-02-15] MEDS: NEURONTIN 300 MG PO (22:06)
[2025-02-15 23:00] VITALS: BP 128/78
[2025-02-16] MEDS: SYNTHROID 100 MCG PO (05:50)
[2025-02-16 07:52] VITALS: BP 158/91
[2025-02-16 08:04] LABS: Mean Corp Hgb Conc. 32.4 g/dL (33.0-37.0); Mean Corpuscular Hgb 28.9 pg (27.0-31.0); Mean Corpuscular Volume 89.2 fL (81.0-99.0); Mean Platelet Volume 10.2 fL (7.4-10.4); Platelet Count 164 10^3/uL (130-400); Red Blood Cell Count 3.81 10^6/uL (4.20-5.40); Red Cell Dist. Width 13.6 % (11.5-14.5); White Blood Cell Count 5.7 10^3/uL (4.8-10.8)
[2025-02-16] MEDS: FEOSOL 325 MG PO (08:12)
[2025-02-16] MEDS: ASPIR LOW (ENTERIC COATED) 81 MG PO (08:12)
[2025-02-16] MEDS: TOPROL XL 50 MG PO (08:13)
[2025-02-16] MEDS: PROTONIX 40 MG PO (08:21)
--- NOTE | 2025-02-16 08:21 | PTCARENOTE ---
pt c/o reflux. dr. hagan aware. Protonix given per order.
[2025-02-16 08:31] LABS: Blood Urea Nitrogen 26 mg/dl (7-17); Calcium 9.2 mg/dl (8.4-10.2); Carbon Dioxide 31 mmol/L (22-30); Chloride 109 mmol/L (98-107); Estimated Creatinine Clearance 47 ml/min; Glucose 96 mg/dl (70-99); Potassium 3.8 mmol/L (3.5-5.1); Sodium 141 mmol/L (135-145); eGFR 59.86
[2025-02-16 10:49] VITALS: BP 122/67; PULSE 67; O2SAT 96
[2025-02-16 10:56] VITALS: BP 122/67; PULSE 67; O2SAT 96
--- NOTE | 2025-02-16 12:25 | W.PN.HOSP.TC ---
Addendum entered and electronically signed by Umu Curry MD 02/16/25 14:05:
total DC time 38 min
Original Note:
Today's Communication/Plan
-
see AP
Assessment / Plan
Assessment / Plan
HPI: 74-year-old female with history of diabetes presented with complaints of low sugar. For the past 2 weeks she has had blood sugars in the 50s to 70s on her Dexcom. She uses Humalog as needed and has not really required it. No other symptoms
other than feeling tired. She is on Humalog as needed, which she has not required, metformin and Ozempic. Patient has a history of recurrent UTIs and has been followed by urology as well as a vulvovaginal specialist. She is on methenamine and as
needed nitrofurantoin. No fever or chills.
A/P:
# Hypoglycemia in setting of IDDM
Patient reports last hemoglobin A1c was 6.4 in December
Cortisol level at 9.2 which is in the intermediate zone, stim test responded appropriately which r/o adrenal insufficiency
TSH low at 0.16, reflex FT4 at 2.11. Recc to repeat TSH reflex FT4 in 4 weeks with PCP
Monitor BG off further D5W
# Recurrent UTIs
# History of colonization with multidrug-resistant organisms Enterobacter, Citrobacter, E. coli
# History of chronic interstitial cystitis
urine culture this admission grew yeast
Stop further empiric Zosyn
Treat with fluconazole 150 mg x1 on 02/15 and second dose in 3 days
Agree with stopping Gemtesa given recurrent UTIs.
Pyridium as needed for symptoms
resume methenamine with vit C after treatment of UTI
# Acute kidney injury with metabolic acidosis, resolved
hold metformin and Lasix, can resume outpt
DCed further IVF with bicarb
# Hypomagnesemia
replaced
# Hypothyroidism
continue levothyroxine 100 mcg daily
TSH low at 0.16, reflex FT4 at 2.11. Recc to repeat TSH reflex FT4 in 4 weeks with PCP and possibly adjust Synthroid at that time
# Hypertension
continue metoprolol
# Hyperlipidemia
continue statin
# History of TIA
continue aspirin and statin
# Obesity with history of gastric sleeve surgery in the past in 2018
Currently on Ozempic.
# Sleep apnea
continue CPAP
# Overactive bladder
Stopped Gemtesa this admission due to recurrent UTI
# GERD-PPI
# Migraines
DVT prophylaxis-Lovenox
Full code
Dispo: PT OT recc SNF vs HH. Pt has elected for SNF
d/w pt's sister on the phone
Anticipated Discharge: Within 24 hours
Subjective/Interval History
-
Date of Service: February 16, 2025
Objective Data
-
Labs:
Laboratory Results
02/16/25
07:46
WBC 5.7
Hgb 11.0 L
Hct 34.0 L
Plt Count 164
Sodium 141
Potassium 3.8
Chloride 109 H
Carbon Dioxide 31 H
BUN 26 H
Creatinine 1.0
Glucose 96
Calcium 9.2
Vital Signs:
Vital Signs
Temp Pulse Resp BP Pulse Ox
36.7 C 72 22 158/91 94
02/16/25 07:52 02/16/25 07:52 02/16/25 07:52 02/16/25 07:52 02/16/25 07:52
I&O
02/15/25 02/16/25 02/17/25
06:59 06:59 06:59
Intake Total 1010 / 1010
Balance 1010 / 1010
Review of Systems
-
History Source: Patient
All other systems: Reviewed and negative
Genitourinary: Denies Dysuria (resolved )
Physical Exam
-
General: Well Developed, Well Nourished, No Apparent Distress, Comfortable, Conversant and Obese
HEENT: Normocephalic and Atraumatic
Respiratory: Clear to Auscultation and Non Labored Respirations; Negative Accessory Resp Muscle Use
Cardiac: Regular Rhythm and S1/S2
GI: Soft and Nontender
Musculoskeletal: No Clubbing
Skin: Warm
Neuro: Awake and Alert
Psych: Calm and Intact Judgement/Insight
Data Reviewed
-
Labs: Labs Reviewed by me
--- NOTE | 2025-02-16 13:18 | CM ---
Addendum entered by Charity Quinones 02/16/25 14:24:
[facility]N orders placed by physician options reviewed with patient and she has selected [facility], [facility] liaison contacted.
Plan; Home with [facility].
Original Note:
Chart reviewed and plan is to home no needs when stable.
Plan; Home no needs when stable.
--- NOTE | 2025-02-16 13:57 | W.DCSUMMARY ---
Discharge Summary
Discharge Data
Date of Admission: 02/15/25
Date of Discharge: 02/16/25
-
Pending Results: No
Hospital Course
Principal Diagnosis:
UTI, urine culture with yeast at this admission
Hypoglycemia, resolved
Resolved BARBARA and metabolic acidosis
Chronic Diagnoses:�
Diabetes
recurrent UTIs
History of chronic interstitial cystitis
Hypothyroidism, on levothyroxine 100 mcg daily. TSH low at 0.16, reflex FT4 at 2.11.
Hypertension, metoprolol
Hyperlipidemia
History of TIA
Obesity with history of gastric sleeve surgery in the past in 2018
Sleep apnea
Overactive bladder. Gemtesa stopped this admission
GERD
Migraines
Consultations:�
Infectious disease
Procedures:�
None
Clinical course:�
This is a 74-year-old female with past medical history as stated above, who presented with hypoglycemia and dysuria.
Problem 1:
Hypoglycemia in setting of diabetes.
Patient reported last hemoglobin A1c was 6.4 % in December.
Random cortisol level was checked, which was at 9.2 (intermediate zone), her stim test responded appropriately which r/o adrenal insufficiency.
Her TSH was low at 0.16, reflex FT4 at 2.11. She was recommended to check repeat TSH reflex FT4 in 4 weeks with her PCP.
Her blood glucose normalized while in the hospital.
Problem 2:
Recurrent UTIs.
Her urine culture this admission grew yeast.
She was given fluconazole 150 mg x1 on 02/15 and second dose in 3 days outpatient.
She can continue to hold prior to admission Gemtesa given recurrent UTIs.
She can start methenamine with vit C after treatment of her current UTI.
Problem 3:
Acute kidney injury with metabolic acidosis, resolved.
As for the rest of her medical problems, they were stable during her hospital stay.
Discharge Plan
-
Patient Disposition: Home with Home Care
Discharge Diagnosis/Procedures: Dysuria due to recurrent UTI (urine culture grew yeast);
Condition: Fair
Diet: As tolerated and Diabetic, Carb Controlled
Activity: As tolerated
Driving Restrictions: As prior to admission
Blood Work: BMP,
TSH reflex FT4 in 4-6 weeks with your PCP
Referrals:
Arelis Crews MD [Family Provider] - in less than 1 week
Additional Discharge Medication Instructions: Fluconazole 150 mg second dose on 02/18.
Resume methenamine with vitamin C on 02/19
Hold Gemtesa in setting of recurrent UTI
Prescriptions:
New
fluconazole 150 mg tablet
150 mg PO ONCE Qty: 1 0RF
Rx Instructions:
take on 02/18
methenamine hippurate 1 gram tablet
1 g PO BID Qty: 60 0RF
ascorbic acid (vitamin C) [Vitamin C] 500 mg tablet
500 mg PO BID Qty: 60 0RF
Continued
atorvastatin 20 mg Tablet
20 mg PO QPM
metoprolol succinate 50 mg Tablet Extended Release 24 Hr
50 mg PO DAILY
omeprazole 40 mg Capsule,Delayed Release(Dr/Ec)
40 mg PO DAILYPRN PRN (Reason: gerd)
aspirin 81 mg Tablet,Delayed Release (Dr/Ec)
81 mg PO DAILY
levothyroxine 100 mcg Tablet
100 mcg PO DAILY
cholecalciferol (vitamin D3) [Vitamin D3] 25 mcg (1,000 unit) Tablet
25 mcg PO DAILY
gabapentin 300 mg Capsule
300 mg PO HS
furosemide [Lasix] 20 mg Tablet
20 mg PO DAILY
ferrous sulfate 325 mg (65 mg iron) tablet
325 mg PO Q48H 30 Days Qty: 15 0RF
therapeutic multivitamin Tablet
1 tab PO DAILY
metformin 1,000 mg tablet
1,000 mg PO BID
insulin lispro [Humalog Kiran KwikPen U-100] 100 unit/mL insulin pen, half-unit
See Rx Instructions .ROUTE .COMPLEX PRN (Reason: blood sugar)
Rx Instructions:
patient says she only uses this in an emergency
Discontinued
Gemtesa 75 mg Tablet
75 mg PO DAILY
Discharge Orders:
Discharge Patient (As Directed); Ordered 02/16/25
Ordered By: Umu Curry
Discharge Date and Time
Print Language: DANISH
--- NOTE | 2025-02-16 14:42 | VNURNOTE ---
Home Health Liaison met with patient at bedside to discuss [facility] nurse/therapy, visits, schedule and homebound status. Patient's sister on speaker phone. Patient is agreeable and understands that visits at home will be 2-3 x per week to assess and
teach medical management. Patient is aware that [facility] will contact them for start of care in 1-2 days after discharge from .
[facility] referral completed in [facility].
[2025-02-16 14:58] VITALS: BP 142/74
[2025-02-16 17:47] LABS: Glucose - Point of Care 125 mg/dl (70-99)
[2025-02-16 17:47] LABS: Glucose - Point of Care 81 mg/dl (70-99)
== END 2025-02-16 16:17 | disposition home health service (06) | DRG 690 ==
LOC: 1 ACUTE 08:24
PROVIDERS: Hospitalist; ADMITTING PHYSICIAN Internal Medicine; ATTENDING PHYSICIAN Internal Medicine; CONSULT PHYSICIAN Student in an Organized Health Care Education/Training Program; EMERGENCY PHYSICIAN Emergency Medicine; FAMILY PHYSICIAN Internal Medicine
DX: N39.0 Urinary tract infection, site not specified (principal); N17.9 Acute kidney failure, unspecified; E87.20 Acidosis, unspecified; B37.49 Other urogenital candidiasis; F03.93 Unspecified dementia, unspecified severity, with mood disturbance; Z87.440 Personal history of urinary (tract) infections; Z79.890 Hormone replacement therapy; E03.9 Hypothyroidism, unspecified; N30.10 Interstitial cystitis (chronic) without hematuria; I10 Essential (primary) hypertension; E78.00 Pure hypercholesterolemia, unspecified; Z86.73 Personal history of transient ischemic attack (TIA), and cerebral infarction without residual deficits; Z98.84 Bariatric surgery status; E66.9 Obesity, unspecified; Z68.33 Body mass index [BMI] 33.0-33.9, adult; G43.909 Migraine, unspecified, not intractable, without status migrainosus; K21.9 Gastro-esophageal reflux disease without esophagitis; E11.649 Type 2 diabetes mellitus with hypoglycemia without coma; Z79.84 Long term (current) use of oral hypoglycemic drugs; F32.A Depression, unspecified; Z79.82 Long term (current) use of aspirin; Z79.4 Long term (current) use of insulin; N32.81 Overactive bladder; N76.1 Subacute and chronic vaginitis; Z11.52 Encounter for screening for COVID-19
CPT/HCPCS: 80048; 80053; 81003; 81015; 82077; 82533; 82962; 83735; 84439; 84443; 85025; 85027; 86803; 87086; 87102; 87502; 87811; 93005; 96374; 97162; 97166; 99284

== ENCOUNTER → 2025-06-29 08:03 | Outpatient (REF) | payer OTHER, SELFPAY | LOC: WDC 08:03 | PROVIDERS: ATTENDING PHYSICIAN Hospitalist | DX: Z12.31 Encounter for screening mammogram for malignant neoplasm of breast (principal) | CPT/HCPCS: 77063; 77067 ==

== ENCOUNTER → 2025-08-03 10:31 | Outpatient (REF) | payer OTHER, SELFPAY ==
[2025-08-03 11:15] VITALS: BP 157/78; BP_SYST 63; BMI 32.2
== END ==
LOC: RADI 10:31
PROVIDERS: ATTENDING PHYSICIAN Internal Medicine Infectious Disease; FAMILY PHYSICIAN Internal Medicine
DX: N39.0 Urinary tract infection, site not specified (principal)
CPT/HCPCS: 36573; C1751